=== PATIENT | female | born 1945 | race Hispanic/Latino ===

== ENCOUNTER → 2018-09-02 | Outpatient (CLI) | payer MEDICARE ==
--- NOTE | 2018-09-21 08:21 | Diagnostic Imaging Report ---
#[id number] - [id number] #BILATERAL DIGITAL SCREENING MAMMOGRAM WITH CAD: 09/02/2018 CLINICAL: Routine screening. No prior exams were available for comparison. The tissue of both breasts is predominantly fatty. Current study was also evaluated with a Computer Aided Detection (CAD) system. There is are calcifications in the right breast at 10 o'clock middle depth. No other significant masses, calcifications, or other findings are seen in either breast. IMPRESSION: INCOMPLETE: NEEDS ADDITIONAL IMAGING EVALUATION The calcifications in the right breast is indeterminate. Magnification and lateral views are recommended. The patient will be contacted by the Mammography Department to schedule this appointment. SHAHIDA LANDA M.D. mc/:09/18/2018 10:49:04 Retail Department Reset: Shelley LAW)([employer]), [facility] letter sent: Additional Imaging Needed Mammogram BI-RADS: 0 Indeterminate
== END ==
LOC: MAMMO 12:54
PROVIDERS: ATTEND Internal Medicine
DX: Z12.31 Encounter for screening mammogram for malignant neoplasm of breast (principal)
CPT/HCPCS: 77067

== ENCOUNTER → 2018-10-01 | Outpatient (CLI) | payer MEDICARE ==
--- NOTE | 2018-10-01 10:59 | Diagnostic Imaging Report ---
Left ankle, 3 views. History: Left ankle pain and swelling. Findings: There is diffuse soft tissue swelling. Bone mineralization is normal. There is no evidence of fracture or dislocation. There are no lytic or sclerotic lesions. The joint spaces are within normal limits. Plantar and posterior calcaneal spurs are present. IMPRESSION: Diffuse soft tissue swelling without acute osseous abnormality. Calcaneal spurs are present. Signed by: Sylvester Waterman on 10/01/2018 10:56 AM
--- NOTE | 2018-10-01 11:01 | Diagnostic Imaging Report ---
Left foot, 3 views. History: Left foot pain and swelling. Findings: There is dorsal soft tissue swelling. Bone mineralization is normal. Slight deformity of the left fifth metatarsal is suggestive of old trauma. There is no evidence of acute fracture or dislocation. There are no lytic or sclerotic lesions. The joint spaces are within normal limits. Plantar and posterior calcaneal spurs are present. IMPRESSION: Dorsal soft tissue swelling without acute osseous abnormality. Signed by: Sylvester Waterman on 10/01/2018 10:58 AM
--- NOTE | 2018-10-02 08:50 | Diagnostic Imaging Report ---
#[id number] - [id number] #UNILATERAL RIGHT DIGITAL DIAGNOSTIC MAMMOGRAM WITH SPOT COMPRESSION AND MAGNIFICATION: 10/01/2018 Comparison is made to exam dated: 09/02/2018 mammogram - [facility]. Current study contains 4 films. The tissue of the right breast is predominantly fatty. There are benign grouped coarse calcifications in the right breast at 10 o'clock anterior depth. No other significant masses or calcifications are seen in the breast. IMPRESSION: BENIGN There is no mammographic evidence of malignancy. A 1 year screening mammogram is recommended. The patient will be notified by letter of the results. SOL ANDERSON M.D. ct/penrad:10/01/2018 10:51:02 Regulatory Compliance Engineer: Shelley DUNCAN(Lauri)(M), [facility] letter sent: Normal Exam Mammogram BI-RADS: 2 Benign
== END ==
LOC: MAMMO 09:04
PROVIDERS: ATTEND Internal Medicine
DX: R92.1 Mammographic calcification found on diagnostic imaging of breast (principal); M25.572 Pain in left ankle and joints of left foot; M25.472 Effusion, left ankle; M25.475 Effusion, left foot

== ENCOUNTER → 2021-09-07 | Outpatient (CLI) | payer MEDICARE | LOC: MAMMO 08:05 | PROVIDERS: ATTEND Internal Medicine | DX: Z12.31 Encounter for screening mammogram for malignant neoplasm of breast (principal) | CPT/HCPCS: 77067 ==